=== PATIENT | female | born 1950 | race Caucasian/White ===

== ENCOUNTER 2017-04-27 10:30 | Emergency (ER) | payer OTHER ==
[~2017-04-27] VITALS: Ht 152.4 cm; Wt 52.8 kg
[2017-04-27 10:54] VITALS: Ht 152.4 cm; Wt 52.8 kg
--- NOTE | 2017-04-27 11:59 | ERD ---
ER Documentation Chief Complaint Chief Complaint Pt presents with R arm pain X 2, needs referral for ortho HPI 66-year-old female states that she had a mechanical fall and to an outstretched hand and presents with a Colles' fracture on the right wrist after being discharged on Thursday which was 2 days ago from [place] emergency department. Patient has paperwork that shows her x-ray findings of the right wrist that shows an acute closed Colles' fracture, she has a prescription of the Hassell that she has not filled yet. The patient is aware that she needs follow-up with her PCP but she states that "they have told me to wait and "never got the appointment. She reports localized pain that is achy, worse in movement, is controlled with Tylenol and ibuprofen at home. She denies numbness. ROS All systems reviewed and are negative except as per history of present illness. Physical Exam Vitals Vital Signs Date Time Temp Pulse Resp B/P Pulse Ox O2 Delivery O2 Flow Rate FiO2 04/27/17 10:54 98.6 95 18 125/71 95 Physical Exam General: Well-developed, well-nourished. The patient appears in no acute distress. HEENT: Head is normocephalic, atraumatic. No scleral icterus. Neck: Supple. Nontender. Lungs: Clear to auscultation. Normal air movement. Heart: Regular rate and rhythm. S1 and S2 are normal. No murmurs, gallops, or rubs. Abdomen: Soft, nontender, nondistended. Bowel sounds are normoactive. Extremities: No clubbing or cyanosis. Normal pulses. Moving extremities x 4. No weakness. Neurologic: Right upper extremity is in a splint and sling. Patient's capillary refill less than 2 seconds. Skin: Normal turgor. No rash or lesions. Results 24 hrs Current Medications Medications (Trade) Dose Ordered Sig/Tomy Route PRN Reason Start Time Stop Time Status Last Admin Dose Admin Acetaminophen/ Hydrocodone Bitart (Hassell (5/325)) 1 tab ONCE ONCE PO 04/27/17 12:00 04/27/17 12:01 Procedures/MDM Medical decision [id number] female comes in with an acute closed Colles' fracture of the right wrist, the patient states that she is aware and knows she is needs to see orthopedics however she did not get the appointment yet. I have informed the patient that with this fracture that patient does not need to see orthopedics emergently, and is not an orthopedic emergency. There are no signs of compartment syndrome, open fracture, neurovascular injury. She will be given instructions to take with her doctor, she has a prescription for Hassell for pain. She has been advised to stay in her splint and to follow-up with orthopedics in the next 2-3 days and needs to get a referral through PCP. The case was reviewed and discussed with Dr. Mendoza who agrees with the plan of care including labs, treatment, and advanced imaging as appropriate. Departure Diagnosis: Primary Impression: Colles' fracture, radius Condition: Good Patient Instructions: Fracture, Wrist [General] Referrals: FAVIANIN KIMANI SHER [facility] YOU HAVE RECEIVED A MEDICAL SCREENING EXAM AND THE RESULTS INDICATE THAT YOU DO NOT HAVE A CONDITION THAT REQUIRES URGENT TREATMENT IN THE EMERGENCY DEPARTMENT. FURTHER EVALUATION AND TREATMENT OF YOUR CONDITION CAN WAIT UNTIL YOU ARE SEEN IN YOUR DOCTORS OFFICE WITHIN THE NEXT 1-2 DAYS. IT IS YOUR RESPONSIBILITY TO MAKE AN APPOINTMENT FOR FOLOW-UP CARE. IF YOU HAVE A PRIMARY DOCTOR --you should call your primary doctor and schedule an appointment IF YOU DO NOT HAVE A PRIMARY DOCTOR YOU CAN CALL OUR PHYSICIAN REFERRAL HOTLINE AT IF YOU CAN NOT AFFORD TO SEE A PHYSICIAN YOU CAN CHOSE FROM THE FOLLOWING [facility] [address] [facility]. [facility] [address] [facility] [facility] [address] [facility] [facility] [address] [facility] [address] [facility]. [facility]. [address] [facility]. [facility] YOU HAVE RECEIVED A MEDICAL SCREENING EXAM AND THE RESULTS INDICATE THAT YOU DO NOT HAVE A CONDITION THAT REQUIRES URGENT TREATMENT IN THE EMERGENCY DEPARTMENT. FURTHER EVALUATION AND TREATMENT OF YOUR CONDITION CAN WAIT UNTIL YOU ARE SEEN IN YOUR DOCTORS OFFICE WITHIN THE NEXT 1-2 DAYS. IT IS YOUR RESPONSIBILITY TO MAKE AN APPOINTMENT FOR FOLOW-UP CARE. IF YOU HAVE A PRIMARY DOCTOR --you should call your primary doctor and schedule and appointment IF YOU DO NOT HAVE A PRIMARY DOCTOR YOU CAN CALL OUR PHYSICIAN REFERRAL HOTLINE AT . IF YOU CAN NOT AFFORD TO SEE A PHYSICIAN YOU CAN CHOSE FROM THE FOLLOWING [facility] INSTITUTIONS[facility] [address] [place] [address] [facility] [address] [place] [address] [facility] [address] [place] [address] [facility] Additional Instructions: Please follow-up with your primary care doctor. You need a referral to see an orthopedist, please see them in the next 2-3 days. JONNY LYNN PA-C Apr 27, 2017 11:59
[2017-04-27] MEDS ORDERED: HYDROCODONE/APAP (5/325) TAB PO ONE (12:00)
== END 2017-04-27 13:07 | disposition home or self-care (01) ==
LOC: FTE 10:30
DX: S52.531D Colles' fracture of right radius, subsequent encounter for closed fracture with routine healing (principal); X58.XXXD Exposure to other specified factors, subsequent encounter
CPT/HCPCS: 99283